=== PATIENT | male | born 1945 | race Caucasian/White ===

== ENCOUNTER 2025-02-02 05:44 | Emergency (ER) | payer MEDICARE, BC, SELFPAY ==
[2025-02-02 05:45] VITALS: BP 133/58
--- NOTE | 2025-02-02 06:37 | ED.GENMED ---
History of Present Illness
General
Chief Complaint: DVT/Possible Blood Clot
Source: patient
Time Seen by Provider: 02/02/25 06:27
History of Present Illness
History of Present Illness:
Note:
CHIEF COMPLAINT(S)
Pain and swelling in the left thigh with concern for possible deep vein thrombosis (DVT).
HISTORY OF PRESENT ILLNESS
The patient is a 79-year-old male who presented with pain and swelling in the left thigh, with suspicion for a possible deep vein thrombosis. The patient reported observing a bluish discoloration and an enlarged vein in the left thigh, described as
waxing and waning with sharp pain intermittently. The pain was noted to dissipate but recurred in waves, causing residual ache. The symptoms were possibly aggravated by some physical activity, particularly after carrying items, although not heavy,
such as jewelry cases while antiquing and going back and forth to the car. The patient denies recent falls or undue physical exertion and maintains an active lifestyle, walking multiple times weekly. The patient reports no associated symptoms such
as coughing, chest pain, shortness of breath, hemoptysis, or exertional dyspnea. He also reports no numbness, tingling, or color changes in the legs.
SOCIAL HISTORY
The patient reports cessation of cigarette smoking 40 years ago. There is no significant family history of bleeding or clotting disorders.
Past History
Past History
ED Past Medical History: Hypercholesterolemia and Other (Recurrent allergic issues)
ED Past Surgical History: Orthopedic
Social History
Tobacco: Former smoker
Alcohol: Occasional
Drug: None
Personal:
Living: with family
Review of Systems
Review of Systems
All Other Systems: ROS reviewed and negative except as documented in HPI and ROS
Phy Exam
Physical Exam
Physical Exam:
GENERAL: Alert , in no apparent distress
HEAD: NCAT
EYE: conjunctiva clear
NECK: Supple
ENT: o/p clr, mmm.
CARDIAC: Regular rate and rhythm
LUNGS: Clear breath sounds bilaterally, no acute respiratory distress, no wheezes/rales/rhonchi
NEUROLOGICAL: Alert and oriented
SKIN: Warm and dry, skin intact. no observable edema, ecchymosis, phlebitis, breaks in the skin
MUSCULOSKELETAL: well perfused. no obvious edema. FROM bilateral lower extremities, easily palpable pedal and tibial pulses. Both extremities are warm and well-perfused. Cap refill is less than 2 seconds. Sensation is grossly intact to light
touch.
PSYCH: Normal and appropriate interaction.
Scores
Heart Failure Risk
Heart Failure Risk Score: Not Applicable
Heart Score for Chest Pain Patients
STEMI patient?: Not applicable
Withdrawal Assessment of Alcohol
Withdrawal Assessment Completed?: Not applicable
Course
Orders/Labs/Results
Orders:
Orders
02/02/25 05:57
Venous Doppler Lwr Ext Left [US Periph Venous LOWER Ext LT] Urgent
Comment:
Reason For Exam: thigh pain,
Vital Signs
Initial and Last Documented VS:
Initial Vital Signs
Temp Pulse Resp BP Pulse Ox
98.3 F 78 16 133/58 98
02/02/25 05:45 02/02/25 05:45 02/02/25 05:45 02/02/25 05:45 02/02/25 05:45
Last Documented Vital Signs
Temp Pulse Resp BP Pulse Ox
98.3 F 78 16 133/58 98
02/02/25 05:45 02/02/25 05:45 02/02/25 05:45 02/02/25 05:45 02/02/25 05:45
MDM/Problems Addressed
Differential Diagnosis Includes:
The Differential Diagnosis includes, in no particular order and is not limited to:
1. Muscle cramping
2. Tendonitis
3. Superficial phlebitis
4. Deep vein thrombosis
5. Arterial insufficiency
6. Venous insufficiency
7. Peripheral vascular disease
8. Lymphedema
9. Cellulitis
10. Neuropathy
MDM/Problems Addressed:
The patient will undergo a Doppler ultrasound of the left lower extremity to rule out DVT. Patient's exam is otherwise reassuring, I do not have concern for arterial occlusion. At time of my exam the patient reports the exam findings seem to have
dissipated although he still does note a minor dull ache to the left thigh
*Pulse Oximetry
Patient hypoxic: no
Comment: 98%
*Critical Care Note
Total Time (30-74mins, 75-104mins- exclusive of procedures): Not Applicable
Patient Management
Escalation/DeEscalation of care consider admission/obs:
The patient was counseled that the ultrasound did not reveal DVT, addressing concerns about clotting. Pain management strategies and signs to watch for were discussed. The patient is stable for discharge and advised to follow up with his primary
care provider for ongoing care and management.
ED Attending Note
-
Portions of this chart may have been created with voice recognition software.� Occasional wrong word or��sound alike� substitutions may have occurred due to the inherent limitations of voice recognition software.
Discharge Plan
Departure
Patient Disposition: Home (Routine Discharge)
Date of Disposition: 02/02/25
Time of Disposition: 07:18
Patient with high blood pressure during this ER visit?: No
Discharge Problem:
Pain in left thigh
Instructions: Muscle spasm - ED discharge instructions
Prescriptions:
No Action
ergocalciferol (vitamin D2) 400 UNIT tablet
400 unit PO
coenzyme Q10 [Co Q-10] 100 MG capsule
100 mg PO
Patient Comments:
occasional
prednisone 10 MG tablet
10 mg PO .TAPER Qty: 30 0RF
Rx Instructions:
Take [id number], [id number], [id number], [id number].
ofloxacin [Floxin] 1 EACH dropperette
5 drops RIGHT EAR BID Qty: 1 0RF
cefdinir 300 MG capsule
300 mg PO BID Qty: 14 0RF
Referrals:
UNKNOWN - PT DOES,NOT KNOW [Family Provider]
Interventions
Interventions:
*Risk Screen - Suicide Last Done: 02/02/25 05:45
ED- Cardiac Assessment Last Done: 02/02/25 06:37
ED- Pulmonary Assessment Last Done: 02/02/25 06:37
ED-Peripheral Vascular Assessment Last Done: 02/02/25 06:37
ED-Skin Assessment Last Done: 02/02/25 06:37
Discharge Date and Time
Print Language: ALGERIAN
== END 2025-02-02 07:30 | disposition home or self-care (01) ==
LOC: EMR 05:44
PROVIDERS: EMERGENCY PHYSICIAN Student in an Organized Health Care Education/Training Program
DX: M79.652 Pain in left thigh (principal); R22.42 Localized swelling, mass and lump, left lower limb; E78.00 Pure hypercholesterolemia, unspecified; Z87.891 Personal history of nicotine dependence
CPT/HCPCS: 99284; 93971

== ENCOUNTER 2025-06-29 21:13 | Emergency (ER) | payer MEDICARE, BC, SELFPAY ==
[2025-06-29 21:19] VITALS: BP 108/68
[2025-06-29 21:30] VITALS: BMI 17.8
--- NOTE | 2025-06-29 21:37 | ED.GENMED ---
History of Present Illness
General
Chief Complaint: Chest Pain
Source: patient and spouse
Exam Limitations: none
Time Seen by Provider: 06/29/25 21:18
Nursing documentation reviewed up to this point in time: agreed with
History of Present Illness
History of Present Illness:
80-year-old male with history of hyperlipidemia, microscopic colitis who presents to the emergency department for evaluation of chest pain. Patient reports onset of symptoms yesterday; he initially noticed symptoms when he was working around the
house carrying an aluminum ladder. He initially attributed the symptoms to muscular pain. This evening he says he was sitting at his computer when he had onset of symptoms once again and this felt more distinctly 'like pain in my heart.' He says
the pain was in the left side of his chest. He did not have any associated shortness of breath, nausea, vomiting, diaphoresis. He did take 3 baby aspirin and called EMS. He received nitroglycerin from EMS and he says that symptoms resolved
shortly thereafter. He is now asymptomatic. He denies having had similar symptoms in the past. He has seen Dr. Bragg for routine cardiac screening.
Past History
Past History
ED Past Medical History: Hypercholesterolemia and Other (Recurrent allergic issues)
ED Past Surgical History: Orthopedic
Social History
Tobacco: Former smoker
Alcohol: Occasional
Drug: None
Personal:
Living: with family
Review of Systems
Review of Systems
All Other Systems: ROS reviewed and negative except as documented in HPI and ROS
Constitutional: Denies fever
Respiratory: Denies trouble breathing
Cardiac: Reports chest pain; Denies diaphoresis
ABD/GI: Denies abdominal pain, nausea or vomiting
Neurological: Denies dizzy or headache
Phy Exam
Physical Exam
Physical Exam:
General: Awake, alert, oriented x3; no acute distress
Head: Normocephalic, atraumatic
Eyes: Conjunctiva normal, sclera anicteric
Throat: Airway intact, handling secretions
Neck: Trachea midline, supple without meningismus
Lungs: Clear to auscultation bilaterally, no wheezing, rales, rhonchi
Heart: Regular rate and rhythm, no murmurs, gallops, or rubs
Abd: Soft, non distended, nontender
Neuro: Grossly intact
Skin: no rash in area of concern
Extremities: No edema in extremities, equal pulses in all extremities
Scores
Heart Failure Risk
Heart Failure Risk Score: Not Applicable
Heart Score for Chest Pain Patients
STEMI patient?: No
History: Slightly or Non-Suspicious
ECG: Normal
Age: >/= 65 years
Risk Factors: 1 or 2 Risk Factors
Troponin: </= Normal Limit
Heart Score for Chest Pain Patients: 3
Heart Score Risk: 2.5% MACE over next 6 weeks
Withdrawal Assessment of Alcohol
Withdrawal Assessment Completed?: Not applicable
Course
Orders/Labs/Results
Orders:
Orders
06/29/25 21:18
ECG [Electrocardiogram (*1)] Urgent
Reason for Study: Chest Pain
Electrocardiogram (*1) Urgent
Reason for Study: Chest Pain
Cardiac Monitoring- Treatment ONCE
IV Insert/Care/Rem.- Treatment PRN
O2 Therapy [RESP] Urgent
Titrate/Wean O2 to maintain O2 sat greater than (%): 90
Special Instructions: Maintain sats >/=90%
Pulse Ox/spot Check [RESP] Urgent
Quantity: 1
Special Instructions: ON ROOM AIR
06/29/25 21:19
EKG- Treatment ONCE
EKG- Treatment ONCE
06/29/25 21:24
Complete Blood Count/With Diff Urgent
Comprehensive Metabolic Panel Urgent
Troponin I Urgent
06/29/25 21:37
CR Chest - 2 Views Urgent
Comment:
Reason For Exam: chest pain
06/29/25 21:42
Vital Signs- Treatment ONCE
Frequency: Once
Comment: temp
06/30/25 00:30
Troponin I Urgent
Abnormal Lab Results
06/29/25
21:24
RBC 4.37 L 10^6/uL
(4.70-6.10)
MCV 95.9 H fL
(80.0-94.0)
MCH 31.6 H pg
(27.0-31.0)
MCHC 32.9 L g/dL
(33.0-37.0)
MPV 11.0 H fL
(7.4-10.4)
Carbon Dioxide 31 H mmol/L
(22-30)
BUN 24 H mg/dl
(9-20)
Glucose 108 H mg/dl
(70-99)
06/29/25 21:24
06/29/25 21:24
Vital Signs
Initial and Last Documented VS:
Initial Vital Signs
Pulse Resp
64 18
06/29/25 21:15 06/29/25 21:15
Last Documented Vital Signs
Pulse Resp BP Pulse Ox
63 15 108/68 97
06/29/25 21:45 06/29/25 21:45 06/29/25 21:19 06/29/25 21:45
MDM/Problems Addressed
Differential Diagnosis Includes:
Angina/ACS, GERD, costochondritis/muscular strain, pneumothorax, rib fracture; very low clinical suspicion for PE or aortic dissection in my judgment no further workup for these diagnoses is indicated
MDM/Problems Addressed:
80-year-old male presents for evaluation of chest pain as described above. Resolved after taking aspirin and receiving nitroglycerin from EMS. Currently chest pain-free. Vital signs are normal here. EKG shows sinus rhythm no acute ischemic
changes. Plan to place an IV check labs including a CBC and a CMP, troponin. Will check a chest x-ray. Monitor on telemetry. Reassess after the above.
Initial labs reviewed: CBC unremarkable, CMP no clinically significant abnormalities. Troponin undetectable x 1�repeat pending. Chest x-ray reviewed by me shows no acute disease. Will discuss with cardiology.
Chronic conditions affecting care:
Hyperlipidemia
*Radiology
Radiology exam reviewed: preliminary read by ED provider
*Pulse Oximetry
SaO2: 100
Oxygen Mode of Delivery: Room air
Patient hypoxic: no (100%)
*EKG
Interpreted by ED Provider?: Yes
Heart Rate: 64
Rate: normal
Rhythm: sinus
[place]: normal axis
Interval: normal interval
QRS Pattern: normal QRS
Ischemia: no ischemia
*Critical Care Note
Total Time (30-74mins, 75-104mins- exclusive of procedures): Not Applicable
Data Reviewed
Review of Other/Old Records Reveals: Labs and Records
Source: patient, records and spouse
Patient Management
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
ED Attending Note
-
Portions of this chart may have been created with voice recognition software.� Occasional wrong word or��sound alike� substitutions may have occurred due to the inherent limitations of voice recognition software.
Discharge Plan
Departure
Discharge Problem:
Chest pain
Instructions: Chest Pain CBC Follow Up
Prescriptions:
No Action
ergocalciferol (vitamin D2) 400 UNIT tablet
400 unit PO
coenzyme Q10 [Co Q-10] 100 MG capsule
100 mg PO
Patient Comments:
occasional
prednisone 10 MG tablet
10 mg PO .TAPER Qty: 30 0RF
Rx Instructions:
Take [id number], [id number], [id number], 32jvz0vuwj.
ofloxacin [Floxin] 1 EACH dropperette
5 drops RIGHT EAR BID Qty: 1 0RF
cefdinir 300 MG capsule
300 mg PO BID Qty: 14 0RF
Referrals:
Benjy Bragg MD [Active, Cardiology] - Call in 1-3 days for appt
Vishal Spain DO [Family Provider, Family Practice]
Interventions
Interventions:
*Risk Screen - Suicide Last Done: 06/29/25 21:21
*General Assessment Last Done: 06/29/25 21:21
*Neglect/Abuse Screening Last Done: 06/29/25 21:21
*ED- Fall Risk Assessment Last Done: 06/29/25 21:21
*ED COVID-19 Vaccine History Last Done: 06/29/25 21:21
*ED Influenza Vaccine History Last Done: 06/29/25 21:21
ED- Cardiac Assessment Last Done: 06/29/25 21:30
Discharge Date and Time
Print Language: TURKISH
[2025-06-29 21:53] LABS: Hematocrit 41.9 % (39.0-52.0); Hemoglobin 13.8 g/dL (13.0-18.0); Mean Corp Hgb Conc. 32.9 g/dL (33.0-37.0); Mean Corpuscular Volume 95.9 fL (80.0-94.0); Nucleated Red Blood Cells % 0 % (-); Platelet Count 185 10^3/uL (130-400); Red Cell Dist. Width 12.2 % (11.5-14.5)
[2025-06-29 22:00] VITALS: BP 107/54
[2025-06-29 22:18] LABS: ALT (SGPT) 22 U/L (0-50); AST (SGOT) 26 U/L (17-59); Albumin 4.3 g/dl (3.5-5.0); Alkaline Phosphatase 66 U/L (38-126); Blood Urea Nitrogen 24 mg/dl (9-20); Calcium 9.3 mg/dl (8.4-10.2); Carbon Dioxide 31 mmol/L (22-30); Chloride 102 mmol/L (98-107); Estimated Creatinine Clearance 30 ml/min; Glucose 108 mg/dl (70-99); Potassium 3.7 mmol/L (3.5-5.1); Sodium 140 mmol/L (135-145); Total Protein 6.4 g/dl (6.3-8.2); eGFR 55.53
[2025-06-29 22:29] LABS: Troponin I < 0.012 ng/ml
[2025-06-29 23:49] VITALS: BP 97/61
[2025-06-30] VITALS: BP 99/49
[2025-06-30 01:00] VITALS: BP 97/52
[2025-06-30 01:08] LABS: Troponin I < 0.012 ng/ml
== END 2025-06-30 02:09 | disposition home or self-care (01) ==
LOC: EMR 21:13
PROVIDERS: Emergency Medicine; EMERGENCY PHYSICIAN Emergency Medicine; FAMILY PHYSICIAN Family Medicine Sports Medicine
DX: R07.9 Chest pain, unspecified (principal); E78.00 Pure hypercholesterolemia, unspecified; Z87.891 Personal history of nicotine dependence
CPT/HCPCS: 99284; 71046; 80053; 84484; 85025; 93005